=== PATIENT | male | born 1975 | race Two or more races ===

== ENCOUNTER 2018-01-18 19:25 | Emergency (ER) | payer OTHER ==
[~2018-01-18] VITALS: Ht 175.3 cm; Wt 129.3 kg
[2018-01-18 19:29] VITALS: Ht 175.3 cm; Wt 129.3 kg
[2018-01-18 20:53] VITALS: BP 162/108
== END 2018-01-18 20:54 | disposition home or self-care (01) ==
LOC: ED 19:25
DX: S20.212A Contusion of left front wall of thorax, initial encounter (principal); S50.312A Abrasion of left elbow, initial encounter; M54.9 Dorsalgia, unspecified; I10 Essential (primary) hypertension; W01.0XXA Fall on same level from slipping, tripping and stumbling without subsequent striking against object, initial encounter; Y93.89 Activity, other specified; Y92.89 Other specified places as the place of occurrence of the external cause; Y99.8 Other external cause status
CPT/HCPCS: J1885